=== PATIENT | male | born 2000 | race Caucasian/White ===

== ENCOUNTER 2018-04-10 05:03 | Emergency (ER) | payer OTHER ==
[~2018-04-10] VITALS: Ht 177.8 cm; Wt 95.3 kg
[~2018-04-10 05:03] MED LIST: MEDROLDOSEPACK PO; NAPROSYN500 MG PO; RISPERDAL 3 MG T3 M1 PO; ROBAXIN 750 MG750 M1 PO
[2018-04-10 05:08] VITALS: BP 173/103
== END 2018-04-10 05:26 | disposition home or self-care (01) ==
LOC: M.ERS 05:03
DX: F10.129 Alcohol abuse with intoxication, unspecified (principal); Y90.9 Presence of alcohol in blood, level not specified

== ENCOUNTER 2018-06-25 18:16 | Emergency (ER) | payer OTHER ==
[~2018-06-25] VITALS: Ht 175.3 cm; Wt 101.2 kg
[2018-06-25 19:18] VITALS: BP 154/70
== END 2018-06-25 19:19 | disposition home or self-care (01) ==
LOC: M.ERS 18:16
DX: R06.02 Shortness of breath (principal); F17.200 Nicotine dependence, unspecified, uncomplicated; F41.9 Anxiety disorder, unspecified